=== PATIENT | female | born 1960 | race Caucasian/White ===

== ENCOUNTER 2016-09-30 08:58 | Emergency (ER) | payer MEDICARE, OTHER ==
[~2016-09-30] VITALS: Ht 157.5 cm; Wt 66.0 kg
[~2016-09-30 08:58] MED LIST: ALBU1AER INH; LORTA5 PO
[2016-09-30 09:00] VITALS: BP 110/62; PULSE 74; RESP 16; TEMP 97.7; O2SAT 98
[2016-09-30] MEDS ORDERED: SYMB80AE INH (09:27)
--- NOTE | 2016-09-30 09:28 | PD ---
HPI Chief Complaint: Fall Time Seen by Provider: 09:23 Travel History International Travel<30 days: No Contact w/Intl Traveler<30days: No Traveled to known affect area: No History of Present Illness HPI 56-year-old female with history of alcohol use, intracranial hemorrhage from previous fall 5 years ago, presents to the ER today because she states that she was standing at the fridge yesterday and is not sure what happened, thinks she fell, is currently complaining of bilateral knee and left foot pains. She had been drinking earlier in the day according to her. She denies any chest pains, dizziness, shortness of breath, or any other issues. She was able to get herself onto the couch that night and eventually was able to get herself into her bathroom. She states that it has hurt more to walk. Pain is currently rated an 8 out of 10. Modifying Factors: None Associated Signs & Symptoms: Fall, questionable loss consciousness, bilateral knee and left foot pain Risk Factors: None PFSH Past Medical History Arthritis: Yes Autoimmune Disease: No Blood Disorders: No Anxiety: Yes Depression: Yes ( PREVIOUS SUICIDAL ATTEMPS AND THOUGHTS) Heart Rhythm Problems: No Cancer: No Cardiac Catheterization: No Cardiovascular Problems: Yes High Cholesterol: No Chemotherapy: No Chest Pain: Yes Congestive Heart Failure: No Cerebrovascular Accident: No Diabetes: No Diminished Hearing: No Endocrine: No Gastrointestinal Disorders: Yes GERD: No Genitourinary: No Headaches: No Hiatal Hernia: No Hypertension: No Musculoskeletal: Yes Neurologic: Yes Psychiatric: Yes Reproductive: No Respiratory: Yes (COPD) Immunizations Current: No Migraines: No Myocardial Infarction: No Radiation Therapy: No Seizures: No Ulcer: No Menopausal: Yes : 0 Past Surgical History Abdominal Surgery: No AICD: No Appendectomy: No Arteriovenous Shunt: No Cardiac Surgery: No Cholecystectomy: No Coronary Artery Bypass Graft: No Ear Surgery: No Endocrine Surgery: No Eye Surgery: No Genitourinary Surgery: No Gynecologic Surgery: No Insulin Pump: No Joint Replacement: Yes (PINS AND SCREWS LEFT ANKLE) Oral Surgery: No Pacemaker: No Thoracic Surgery: No Other Surgery: Yes Social History Alcohol Use: Yes (BEER 4-6 BEERS PER WEEK) Tobacco Use: Yes (2-3 DAY) Substance Use: No Allergies-Medications (Allergen,Severity, Reaction): Coded Allergies: Aspirin (Verified Allergy, Severe, 09/30/16) Codeine (Verified Allergy, Severe, 09/30/16) Keflex (Verified Allergy, Severe, rash-HOWEVER RECEIVED ANCEF WITH NO REACTION, 09/30/16) Reported Meds & Prescriptions Reported Meds & Active Scripts Active Tramadol (Tramadol HCl) 50 Mg Tab 50 Mg PO Q6H PRN Reported Symbicort Inh (Budesonide/Formoterol Fumarate) 80-4.5 Mcg/Act Aero 2 Puff INH Q12HR Review of Systems Except as stated in HPI: all other systems reviewed are Neg Physical Exam Narrative GENERAL: Well-developed middle age white female patient currently in mild distress. Awake and oriented 3. SKIN: Focused skin assessment warm/dry. HEAD: Atraumatic. Normocephalic. EYES: Pupils equal and round. No scleral icterus. No injection or drainage. ENT: No nasal bleeding or discharge. Mucous membranes pink and moist. NECK: Trachea midline. No JVD. CARDIOVASCULAR: Regular rate and rhythm. No murmur appreciated. RESPIRATORY: No accessory muscle use. Clear to auscultation. Breath sounds equal bilaterally. GASTROINTESTINAL: Abdomen soft, non-tender, nondistended. Hepatic and splenic margins not palpable. Pelvis: Stable and nontender to palpation. MUSCULOSKELETAL: No obvious deformities. No clubbing. No cyanosis. No edema. EXTREMITIES: No clubbing, cyanosis, or edema. Mild tenderness on palpation of both knees, tender with ranging. Without obvious deformities. There is left lateral foot tenderness on palpation without obvious deformities. NEUROLOGICAL: Awake and alert. No obvious cranial nerve deficits. Motor grossly within normal limits. Normal speech. PSYCHIATRIC: Appropriate mood and affect; insight and judgment normal. Data Data Last Documented VS Vital Signs Date Time Temp Pulse Resp B/P Pulse Ox O2 Delivery O2 Flow Rate FiO2 09/30/16 09:00 97.7 74 16 110/[address] Brain W/O Iv Contrast(Rout) (09/30/16 09:23) Foot, Complete ([id number]) (09/30/16 09:23) Knee, Complete (4vws) (09/30/16 09:23) Knee, Complete (4vws) (09/30/16 09:23) Pelvis, Ap Only (Routine) (09/30/16 09:28) Electrocardiogram (09/30/16 09:28) Tramadol-Acetamin 37.5-325 Mg (Ultracet (09/30/16 11:00) Splint Or Brace Apply/Monitor (09/30/16 11:12) MDM Medical Decision Making Medical Screen Exam Complete: Yes Emergency Medical Condition: Yes Medical Record Reviewed: Yes Interpretation(s) Last 24 hours Impressions Pelvis X-Ray 09/30/16927 Signed Impressions: Service Date/Time: Friday, September 30, 2016 09:42 - CONCLUSION: Negative trauma study. Gigi Cali MD Knee X-Ray 09/30/16922 Signed Impressions: Service Date/Time: Friday, September 30, 2016 09:43 - CONCLUSION: 1. No acute fracture or malalignment. 2. Osteopenia and mild osteoarthritic change. 3. Moderate effusion. Gigi Cali MD Knee X-Ray 09/30/16922 Signed Impressions: Service Date/Time: Friday, September 30, 2016 09:45 - CONCLUSION: Negative trauma study. Gigi Cali MD Head CT 09/30/16922 Signed Impressions: Service Date/Time: Friday, September 30, 2016 10:04 - CONCLUSION: Unremarkable noncontrast CT Gigi Cali MD Foot X-Ray 09/30/16922 Signed Impressions: Service Date/Time: Friday, September 30, 2016 09:48 - CONCLUSION: 1. Mild soft tissue prominence with no acute fracture or malalignment. 2. Remote postsurgical changes and osteoarthritis. Gigi Cali MD Differential Diagnosis Fall, questionable loss consciousness, bilateral knee and left foot injury contusions versus fracture versus sprain, rule out intracranial injuries Narrative Course X-rays did not show any signs of acute intracranial injuries or acute fractures. At this point, my plan would be to give her supportive Kamari bandage for the knees and follow-up with primary care physician. We will give her symptomatic relief or pain. Return for any worsening in pain or new symptoms as needed. The plan has been discussed with her and she states understanding. Diagnosis Primary Impression: Fall as cause of accidental injury at home as place of occurrence Additional Impressions: Contusion, knee Strain of left foot Med/Other Pt SpecificInfo: Prescription(s) given Scripts Tramadol 50 Mg Tab50 Mg PO Q6H PRN (PAIN) #20 TAB Ref 0 Prov:Ly Zaragoza MD 09/30/16 Disposition: 01 DISCHARGE HOME Condition: Stable Ly Zaragoza MD September 30, 2016 09:28
--- NOTE | 2016-09-30 10:14 | RADRPT ---
EXAM DATE/TIME: 09/30/2016 10:04 [facility] COMPARISON: No previous studies available for comparison. INDICATIONS : Fall three days ago, cephalgia. RADIATION DOSE: 34.10 CTDIvol (mGy) MEDICAL HISTORY : Chronic obstructive pulmonary disease. traumatic brain injury SURGICAL HISTORY : None. ENCOUNTER: Initial ACUITY: 3 days PAIN SCALE: 8/10 LOCATION: Bilateral frontal TECHNIQUE: Multiple contiguous axial images were obtained of the head. Using automated exposure control and adj ustment of the mA and/or kV according to patient size, radiation dose was kept as low as reasonably a chievable to obtain optimal diagnostic quality images. FINDINGS: CEREBRUM: The ventricles are normal for age. No evidence of midline shift, mass lesion, hemorrhage or acute in farction. No extra-axial fluid collections are seen. POSTERIOR FOSSA: The cerebellum and brainstem are intact. The 4th ventricle is midline. The cerebellopontine angle i s unremarkable. EXTRACRANIAL: The visualized portion of the orbits is intact. SKULL: The calvaria is intact. No evidence of skull fracture. CONCLUSION: Unremarkable noncontrast CT Gigi Cali MD on September 30, 2016 at 10:11 Board Certified Radiologist. This report was verified electronically.
--- NOTE | 2016-09-30 10:19 | RADRPT ---
EXAM DATE/TIME: 09/30/2016 09:42 [facility] COMPARISON: No previous studies available for comparison. INDICATIONS : Patient fell on 09/27/16. Complains of pelvic pain. MEDICAL HISTORY : None. SURGICAL HISTORY : None. ENCOUNTER: Initial ACUITY: 4 - 6 days PAIN SCORE: 6/10 LOCATION: Pelvis FINDINGS: A single frontal view of the pelvis demonstrates no evidence of fracture. The bony pelvic ring is in tact. Bony mineralization is normal. The soft tissues are intact. CONCLUSION: Negative trauma study. Gigi Cali MD on September 30, 2016 at 10:16 Board Certified Radiologist. This report was verified electronically.
--- NOTE | 2016-09-30 10:21 | RADRPT ---
EXAM DATE/TIME: 09/30/2016 09:48 [facility] COMPARISON: No previous studies available for comparison. INDICATIONS : Patient fell on 09/27/16. Complains of left foot pain. MEDICAL HISTORY : None. SURGICAL HISTORY : Left ankle orif. ENCOUNTER: Initial ACUITY: 4 - 6 days PAIN SCORE: 6/10 LOCATION: Left Foot FINDINGS: AP, lateral and oblique views of the left foot were obtained and demonstrate remote postsurgical garnica ges with plaque type screws the tibiotalar arthrodesis. There is degenerative changes in the metatars al tarsal joints and intertarsal joints. There is no acute fracture or malalignment. Metatarsals and phalanges are intact. There is mild soft tissue prominence over the dorsum of the foot. CONCLUSION: 1. Mild soft tissue prominence with no acute fracture or malalignment. 2. Remote postsurgical changes and osteoarthritis. Gigi Cali MD on September 30, 2016 at 10:17 Board Certified Radiologist. This report was verified electronically.
--- NOTE | 2016-09-30 10:22 | RADRPT ---
EXAM DATE/TIME: 09/30/2016 09:45 [facility] COMPARISON: No previous studies available for comparison. INDICATIONS : Patient fell on 09/27/16. Complains of left knee pain. MEDICAL HISTORY : None. SURGICAL HISTORY : None. ENCOUNTER: Initial ACUITY: 4 - 6 days PAIN SCORE: 6/10 LOCATION: Left Knee FINDINGS: Four view examination of the left knee demonstrates no evidence of fracture or dislocation. Bony min eralization is normal. There is minimal spurring in the patellofemoral joint. The articular surfaces are intact. The suprapatellar soft tissues have a normal configuration. CONCLUSION: Negative trauma study. Gigi Cali MD on September 30, 2016 at 10:19 Board Certified Radiologist. This report was verified electronically.
--- NOTE | 2016-09-30 10:29 | RADRPT ---
EXAM DATE/TIME: 09/30/2016 09:43 [facility] COMPARISON: No previous studies available for comparison. INDICATIONS : Patient fell on 09/27/16. Complains of right knee pain. MEDICAL HISTORY : None. SURGICAL HISTORY : None. ENCOUNTER: Initial ACUITY: 4 - 6 days PAIN SCORE: 6/10 LOCATION: Right Knee FINDINGS: A standard 4 view examination of the right knee was obtained and demonstrates no acute fracture or ma lalignment. There are mild degenerative changes with minimal spurring. There is mild fullness in the suprapatellar bursa region. There is mild osteopenia. The alignment is anatomic CONCLUSION: 1. No acute fracture or malalignment. 2. Osteopenia and mild osteoarthritic change. 3. Moderate effusion. Gigi Cali MD on September 30, 2016 at 10:26 Board Certified Radiologist. This report was verified electronically.
[2016-09-30] MEDS ORDERED: traMADol/ACETAMINOPHEN 37.5/325 1 TAB PO ONE (11:00)
[2016-09-30] MEDS ORDERED: TRAM50TA PO (11:12)
--- NOTE | 2016-09-30 21:53 | EKG ---
Date Performed: 09/30/2016 Time Performed: 10:27:39 PTAGE: 56 years EKG: Sinus rhythm WITH SHORT TX INTERVAL BORDERLINE ECG PREVIOUS TRACING : 07/31/2009 22.45 DOCTOR: Hilary Llamas Interpretating Date/Time 09/30/2016 21:49:26
== END 2016-09-30 11:37 | disposition home or self-care (01) ==
LOC: NEPD 08:58
DX: S96.912A Strain of unspecified muscle and tendon at ankle and foot level, left foot, initial encounter (principal); S80.00XA Contusion of unspecified knee, initial encounter; W19.XXXA Unspecified fall, initial encounter; Y92.000 Kitchen of unspecified non-institutional (private) residence as the place of occurrence of the external cause
CPT/HCPCS: 70450; 72170; 73564; 73630; 93005; 99284; L3260